=== PATIENT | male | born 1955 | race Caucasian/White ===

== ENCOUNTER 2021-09-13 14:00 | Outpatient (CLI) | payer MEDICARE, SELFPAY ==
--- NOTE | ~2021-09-13 | CT_ITS ---
EXAMINATION: CT soft tiss nk chst ab pel wo DATE: 09/13/2021 14:43 INDICATION: Lymphomatoid papulosis. TECHNIQUE: Computed tomography (CT) of the neck, chest, abdomen, and pelvis was performed without int ravenous contrast. Automated exposure control and iterative reconstruction technique were employed. T he dose-length product was 1501.88 mGy-cm. COMPARISON: None FINDINGS: NECK CT: There are no pathologically enlarged lymph nodes. There is mild mucosal thickening in the paranasal s inuses. There are changes of healed anterior fusion procedure from C5 to C7 with anterior plate and s crews. There is moderate cervical spondylosis. CHEST CT: There is mild atelectasis bilaterally. A calcified right lung nodule and calcified right hilar and me diastinal lymph nodes are consistent with old granulomatous disease. No pleural effusion. The heart s ize is normal. There are coronary artery calcifications. No pericardial effusion. There is mild thora cic spondylosis. ABDOMEN/PELVIS CT: There is diffuse hepatic steatosis. There is a gallstone in the gallbladder, which is normal in size. The spleen is normal in size. The pancreas, adrenal glands, and kidneys are normal. There is a small left inguinal hernia containing fat. There are no dilated loops of bowel. There are no pathologicall y enlarged lymph nodes. There is no free intraperitoneal fluid. There is diffuse bladder wall thicken ing. There is mild lumbar spondylosis. IMPRESSION: 1. Diffuse hepatic steatosis. 2. Diffuse bladder wall thickening, which may be secondary to chronic outlet obstruction or cystitis. Reviewed, dictated and finalized at location A. IMPRESSION: 1. Diffuse hepatic steatosis. 2. Diffuse bladder wall thickening, which may be secondary to chronic outlet ob struction or cystitis.
== END 2021-09-13 14:01 | disposition home or self-care (01) ==
PROVIDERS: PCP Internal Medicine; Visit Provider Internal Medicine Hematology & Oncology
DX: C86.6 Primary cutaneous CD30-positive T-cell proliferations (principal); K76.0 Fatty (change of) liver, not elsewhere classified; R93.89 Abnormal findings on diagnostic imaging of other specified body structures
CPT/HCPCS: 70490; 71250; 74176

== ENCOUNTER 2021-09-20 10:05 | Outpatient (CLI) | payer MEDICARE, SELFPAY ==
--- NOTE | ~2021-09-20 | XR_ITS ---
EXAMINATION: XR barium swallow modified EXAM DATE: 09/20/2021 11:05 INDICATION: R13.10 - Dysphagia, unspecified . TECHNIQUE: Modified barium esophagram was performed by speech pathologist with radiologist Dr. Lane Salter present to administered fluoroscopy. Speech pathologist administered barium in varying consis tencies as per speech pathologist documentation. This was recorded on tape. Additional frontal standing images of the esophagus were obtained. There was total fluoroscopic time of 1.2 minutes. The DAP for this procedure was 1.4 Gycm2. A total of 222 images sent to PACS from [facility] exam. FINDINGS: Oral stage: Adequate function. Pharyngeal phase: Adequate function. Laryngeal penetration: None. Aspiration: None. Laryngeal sensitivity: Present. Frontal esophageal projections demonstrates no evidence of esophageal mass lesion, stricture or diver ticulum. There is cervical fusion hardware. IMPRESSION: Patient tolerated oral feedings in the upright position. Please refer to speech patholo gist findings and specific feeding recommendations. Reviewed, dictated and finalized at location A. IMPRESSION: Patient tolerated oral feedings in the upright position. Please r efer to speech pathologist findings and specific feeding recommendations.
== END 2021-09-20 10:06 | disposition home or self-care (01) ==
LOC: ANHIMG 10:11
PROVIDERS: PCP Internal Medicine; Visit Provider Otolaryngology
DX: R13.10 Dysphagia, unspecified (principal)
CPT/HCPCS: 92611

== ENCOUNTER 2021-12-28 00:44 | Day surgery (SDC) | payer MEDICARE, SELFPAY ==
[2021-12-16 13:27] VITALS: BMI 24.9
--- NOTE | 2021-12-27 16:37 | PM.HPGS ---
History of Present Illness History of Present Illness Consent: Risks, benefits, and alternatives have been discussed and questions answered. Patient agrees to proceed with procedure. Chief complaint: neoplasm screening Narrative: Reno Thacker is a 66 year old male here for colon cancer screening Review of Systems Review of Systems: All systems reviewed & are unremarkable except as noted in HPI and below PMFSH Past Medical History Medical History Hyperglycemia Family History Family History Father Family history of diabetes mellitus in first degree relative Mother Patient's mother is Social History Social History Smoking status: Never smoker Second hand tobacco smoke exposure: No Alcohol intake: current Drinks per week: 20 Living arrangements: alone Spiritual care concerns: No Meds Home Medications and Allergies Home Medications Medication Instructions Recorded Confirmed Type vardenafil 20 mg tablet 20 mg PO DAILY PRN #30 tablet 10/18/20 12/16/21 Rx lisinopril 40 mg tablet 40 mg PO DAILY #90 tablet 08/01/21 12/28/21 Rx diazepam 10 mg tablet 10 mg PO .hs PRN #30 tablet 11/02/21 12/28/21 Rx sildenafil 100 mg tablet 100 mg PO DAILY PRN #30 tablet 11/29/21 12/16/21 Rx lansoprazole 30 mg PO EVERY OTHER DAY 12/16/21 12/28/21 History minocycline 50 mg PO EVERY OTHER DAY 12/16/21 12/28/21 History Allergies Allergy/AdvReac Type Severity Reaction Status Date / Time iodine Allergy Unknown unknown Verified 12/28/21 08:16 Penicillins Allergy Unknown unknown Verified 12/28/21 08:16 Exam Resp: Auscultation: clear to auscultation bilaterally Cardio: Rate: regular rate Rhythm: regular rhythm GI: GI Palp: Yes Soft to palpation and No Tenderness to palpation present (GI) Assessment and Plan Assessment and plan (1) Colon cancer screening: Code(s): Z12.11 - Encounter for screening for malignant neoplasm of colon Status: Acute Assessment and Plan: Colonoscopy with possible biopsy or polypectomy or cautery or injection of substances.
[2021-12-28 08:17] VITALS: BP 151/97; PULSE 106; RESP 19; TEMP 36.4; O2SAT 100
[2021-12-28] MEDS: LACTATED RINGERS 1,000 ML 150 ML IV CONT (08:27)
--- NOTE | 2021-12-28 09:36 | WPDANESEPPF ---
Anes - Initial Pre Proc Eval Procedure: Operation Date: 12/28/21 09:30 Proposed Procedures p Screening Colonoscopy - Mele Bynum MD Date/Time: 12/28/21 09:36 Surgeon: Mele Bynum MD Pre Op Diagnosis: neoplasm screening Patient Data Age: 66 Gender: M Height: 1.65 m Weight: 67.3 kg Last Vital Signs Temp 97.5 F L 12/28/21 08:17 Pulse 106 H 12/28/21 08:17 Resp 19 12/28/21 08:17 BP 151/97 H 12/28/21 08:17 Pulse Ox 100 12/28/21 08:17 Allergies Allergy/AdvReac Type Severity Reaction Status Date / Time iodine Allergy Unknown unknown Verified 12/28/21 08:16 Penicillins Allergy Unknown unknown Verified 12/28/21 08:16 Home Medications Medication Instructions Recorded Confirmed Type vardenafil 20 mg tablet 20 mg PO DAILY PRN #30 tablet 10/18/20 12/16/21 Rx lisinopril 40 mg tablet 40 mg PO DAILY #90 tablet 08/01/21 12/28/21 Rx diazepam 10 mg tablet 10 mg PO .hs PRN #30 tablet 11/02/21 12/28/21 Rx sildenafil 100 mg tablet 100 mg PO DAILY PRN #30 tablet 11/29/21 12/16/21 Rx lansoprazole 30 mg PO EVERY OTHER DAY 12/16/21 12/28/21 History minocycline 50 mg PO EVERY OTHER DAY 12/16/21 12/28/21 History Patient hx anesthesia problems: none Family hx anesthesia problems: none Results Review: All pre-operative results and documents have been reviewed as part of the pre-operative evaluation. [facility] Past Medical History Medical History Hyperglycemia Family History Family History Father Family history of diabetes mellitus in first degree relative Mother Patient's mother is Social History Social History Smoking status: Never smoker Second hand tobacco smoke exposure: No Alcohol intake: current Drinks per week: 20 Living arrangements: alone Spiritual care concerns: No Anes - Eval Final PreProcedure Day of Procedure 12/28/21 09:36 Patient weight: overweight Heart: regular rate and rhythm Lungs: clear to auscultation Airway: Mallampati scale class II Neurological: alert and oriented Last oral intake: >/= 8 hours ASA classification: II Emergent: no Anesthetic plan: proceed Anesthesia type and monitoring: general GIVS and standard monitoring Results Review: All pre-operative results and documents have been reviewed as part of the pre-operative evaluation. Informed Consent: The patient's anesthetic plan and its attendant risks and benefits were discussed with the patient/family/POA. Questions were solicited and answers provided to the satisfaction of the patient/family/POA.
[2021-12-28] MEDS: SIMETHICONE ORAL SUSPENSION 20 MG/0.3 ML 30 ML BOTTLE 0.6 ML IRRIGATION (09:39)
[2021-12-28 09:49] VITALS: BP 83/56; PULSE 85; RESP 19; O2SAT 98
[2021-12-28 09:59] VITALS: BP 97/61; PULSE 86; RESP 23; O2SAT 100
[2021-12-28 10:09] VITALS: BP 111/74; PULSE 81; RESP 20; O2SAT 100
== END 2021-12-28 10:25 | disposition home or self-care (01) ==
PROVIDERS: PCP Internal Medicine; Visit Provider Internal Medicine Gastroenterology
PROC: 0DJD8ZZ Inspection of Lower Intestinal Tract, Via Natural or Artificial Opening Endoscopic (ICD-10-PCS; CPT 45378; principal; 2021-12-28 09:30)
DX: Z12.11 Encounter for screening for malignant neoplasm of colon (principal)
CPT/HCPCS: G0121; J2704; J7120

== ENCOUNTER 2021-12-28 14:38 | Observation (INO) | payer MEDICARE, SELFPAY ==
--- NOTE | ~2021-12-28 | NM_ITS ---
EXAMINATION: NM stress w perf spect multi DATE: 12/29/2021 13:43 INDICATION: Chest pain TECHNIQUE: Rest images were obtained following intravenous administration of 9.2 mCi Tc99m tetrofosmi n ([employer] [place]). The patient performed an exercise activity. At peak exercise, 28.8 mCi Tc99m tetrofosmin (Myoview) was administered intravenously, and stress images were obtained. Data was reconstructed in to short axis and horizontal and vertical long axis SPECT images. Gated SPECT images were also obtain ed. COMPARISON: None. FINDINGS: There is normal left ventricular perfusion without definite evidence of reversible or fixed perfusion abnormality to suggest ischemia or infarction. There is normal left ventricular chamber size, wall motion and ejection fraction. Left ventricular ejection fraction measures >70%. IMPRESSION: 1. Normal myocardial perfusion at rest and during stress. 2. Left ventricular ejection fraction measuring >70%. Reviewed, dictated and finalized at location A. TROGRAPH OPERATOR
--- NOTE | ~2021-12-28 | XR_ITS ---
EXAMINATION: XR chest 2V DATE: 12/28/2021 15:08 INDICATION: Dyspnea. Upper arm and chest pain. TECHNIQUE: Frontal and lateral views of the chest were obtained. COMPARISON: Chest CT 09/13/2021 FINDINGS: The chest demonstrates clear lungs without pneumonia, pleural effusion, or pneumothorax. Th e heart size is normal. There are changes of anterior fusion procedure in cervical spine. IMPRESSION: 1. No acute cardiopulmonary disease. Reviewed, dictated and finalized at location E. UGH OPERATOR
--- NOTE | 2021-12-28 14:42 | ECG_ITS ---
Measurements Intervals [place] Rate: 115 P: 14 OK: 108 QRS: 10 QRSD: 85 T: 48 QT: 309 QTc: 428 Interpretive Statements SINUS TACHYCARDIA INCOMPLETE RIGHT BUNDLE BRANCH BLOCK DELAYED PRECORDIAL R/S TRANSITION ABNORMAL ECG Electronically Signed On 12-28-2021 15:02:47 BUSPERSON by Audie Wing D.O.
[2021-12-28 15:07] LABS: Basophils Absolute Auto 0.1 K/mm3 (0.0-0.1); Basophils Percent Auto 0.7 % (0.2-1.2); Eosinophils Percent Auto 0.4 % (0-4.4); Hematocrit 48.5 % (42.0-52.0); Immature Granulocyte Absolute 0.03 K/mm3 (0.00-0.031); Immature Granulocyte Percent A 0.4 % (0-0.5); Lymphocytes Absolute Auto 1.76 K/mm3 (0.9-3.2); Lymphocytes Percent Auto 25.3 % (18.3-44.2); Mean Corpuscular HGB Conc 35.1 g/dl (32-36); Mean Corpuscular Hemoglobin 32.1 pg (26-34); Mean Corpuscular Volume 91.7 fl (80-100); Mean Platelet Volume 9.7 fl (7.4-10.4); Neutrophils Absolute Auto 4.1 K/mm3 (1.3-6.7); Neutrophils Percent Auto 59.2 % (45.5-73.1); Platelet Count Result 227 k/mm3 (150-375); Red Blood Count 5.29 M/mm3 (4.6-6.20); Red Cell Distribution Width 11.9 % (11.5-14.5)
[2021-12-28 15:18] LABS: Partial Thromboplastin Time 23.5 SECONDS (22.3-36.8); Prothrombin Time 12.9 Seconds (11.1-14.7)
[2021-12-28 15:24] LABS: Alanine Aminotransferase 36 U/L (4-50); Albumin Level 4.4 g/dL (3.5-5.1); Alkaline Phosphatase 70 U/L (38-126); Anion Gap 9 mmol/L (8-16); Aspartate Amino Transferase 39 U/L (17-59); Bilirubin,Total 0.9 mg/dL (0.2-1.3); Blood Urea Nitrogen 16 mg/dL (9-20); Calcium 9.6 mg/dL (8.4-10.2); Carbon Dioxide 22 mmol/L (22-30); Chloride 101 mmol/L (98-107); Estimated CRCL calculation 37 ml/min; Estimated Glomerular Filt Rate 44; Glucose 298 mg/dL (65-110); Lipase 84 U/L (23-300); Potassium 4.1 mmol/L (3.4-5.0); Sodium 132 mmol/L (137-145)
[2021-12-28 15:35] LABS: Troponin I < 0.012 ng/mL (0.000-0.034)
[2021-12-28] MEDS: ASPIRIN 81 MG CHEWABLE TABLET 324 MG PO (18:07)
[2021-12-28 18:25] VITALS: PULSE 92
[2021-12-28 18:44] LABS: Troponin I < 0.012 ng/mL (0.000-0.034)
--- NOTE | 2021-12-28 19:31 | ED.GENADULT ---
HPI - General Adult General Chief complaint: Shortness of Breath/Dyspnea Stated complaint: nausea, dyspnea. arms are heavy Time Seen by Provider: 12/28/21 17:42 Source: patient Mode of arrival: ambulatory Limitations: no limitations History of Present Illness HPI narrative: 66-year-old with a history of her diabetes, hypertension, hyperlipidemia was sent by his primary doctor with a bilateral arm heaviness for past 1 week. Patient states that he has been painting started feeling heaviness in his both the shoulders associated with diaphoresis which lasted for few minutes had 3 such episodes since then. He presently denies any shortness of breath or chest pain. He has no previous history of coronary artery disease and never had a stress test in the past. Severity: moderate Pain Consistency: intermittent Relieving factors: rest Exacerbating factors: other (With exertion) Associated symptoms: diaphoresis and shortness of breath Related Data Home Medications Medication Instructions Recorded Confirmed lansoprazole 30 mg PO EVERY OTHER DAY 12/16/21 12/28/21 minocycline 50 mg PO EVERY OTHER DAY 12/16/21 12/28/21 Allergies Allergy/AdvReac Type Severity Reaction Status Date / Time iodine Allergy Unknown unknown Verified 12/28/21 18:00 Penicillins Allergy Unknown unknown Verified 12/28/21 18:00 Review of Systems Review of Systems: All systems reviewed & are unremarkable except as noted in HPI and below Constitutional: Constitutional: Reports no additional constitutional complaints Eyes: Eyes: Reports no additional eye complaints ENT: Reports system reviewed and no additional complaints, except as documented Cardiovascular: Cardiovascular: Reports no additional cardiovascular complaints Respiratory: Respiratory: Reports as per HPI Gastrointestinal: Gastrointestinal: Reports no additional gastrointestinal complaints Musculoskeletal: Musculoskeletal: Reports no additional musculoskeletal complaints Integumentary/Breasts: Skin/Breast: Reports system reviewed and no additional complaints, except as docu Neurologic: Reports system reviewed and no additional complaints, except as documented Psychiatric: Psychiatric: Reports no additional psychiatric complaints [facility] Past Medical History Medical History Hyperglycemia Family History Family History Father Family history of diabetes mellitus in first degree relative Mother Patient's mother is Social History Social History Smoking status: Never smoker Second hand tobacco smoke exposure: No Alcohol intake: current Drinks per week: 20 Spiritual care concerns: No Exam Narrative: GENERAL: Well-appearing, well-nourished, and in no acute distress. HEAD: Normocephalic, atraumatic. EYES: PERRLA and EOMI. NECK: Supple. CHEST: Clear to auscultation. No respiratory distress. HEART: Regular rate and rhythm. No murmur heard. Normal peripheral pulses. ABDOMEN: Soft, nontender, nondistended, normal active bowel sounds. EXTREMITIES: Normal range of motion. No edema. SKIN: Warm, dry, no rash. NEURO: No focal deficits. Alert and oriented x3. PSYCH: Normal mood and affect. Course Course Emergency Course: Patient presently not having any pain, informed him about his EKG, lab work and chest x-ray findings. I discussed with Dr. Simpson will consult the patient. I discussed with Stretched agreed to admit the patient. Vital Signs Vital signs: Vital Signs Pulse Rate 92 12/28/21 18:25 Pulse Rate 92 12/28/21 18:25 Medical Decision Making Differential Diagnosis Differential Diagnosis: Musculoskeletal pain, angina Medical Records Medical records reviewed: Yes I reviewed the external patient's medical records. Vital Signs Vital Signs: Vital Signs Pulse Rate 92 12/28
[2021-12-28 19:37] VITALS: BP 128/85; PULSE 90; RESP 22; O2SAT 100
--- NOTE | 2021-12-28 20:35 | PC.NURSE ---
Care assumed of pt at this time. States i feel okay now . Pt is aware he is waiting for bed placement upstairs. Pt has been given a meal and is resting at this time.
[2021-12-28 21:16] VITALS: PULSE 87; RESP 18; O2SAT 98
[2021-12-28 21:39] LABS: Troponin I < 0.012 ng/mL (0.000-0.034)
[2021-12-28 21:47] VITALS: BP 112/76
[2021-12-28 22:25] LABS: SARS-CoV-2 RNA PCR Negative
[2021-12-28 23:42] VITALS: BP 122/78; PULSE 78; RESP 18; O2SAT 99
[2021-12-29] VITALS (8 sets, daily range): BP systolic 118–133; BP diastolic 77–88; PULSE 67–90; RESP 14–22; TEMP 35.8–36.8; O2SAT 98–100; BMI 26.4
--- NOTE | 2021-12-29 | EST_ITS ---
Patient Info Name: Reno Thacker Age: 66 years : 1955 Gender: Male Ht: 65 in Wt: 153 lbs BSA: 1.80 m2 HR: 81 bpm BP: 112 / 87 mmHg Heart Rhythm: Sinus Rhythm Exam Date: 12/29/2021 11:39 AM Exam Location: [facility] Stress Patient Status: Outpatient Admit Date: 12/28/2021 Staff Ordering Physician: Tiago Gomez Attending Provider: Gentry Hernández MD Exercise Technologist: Maryann Parks CT Nurse: TIAGO GOMEZ Exam Type: CA stress test treadmill w NM Study Info Indications R07.9 - Chest pain, unspecified A nuclear stress test was performed. Summary 1. Normal ST segment response to stress. 2. Please correlate with nuclear medicine images, reported separately. Protocol: [facility] Stress ECG Details Stage: REST Duration (min): 1 min : 28 sec Speed (mph): 0.0 Grade (%): 0 HR (bpm): 75 SBP (mmHg): 112 DBP (mmHg): 87 METS: --- Stage: REST Duration (min): 5 min : 27 sec Speed (mph): 0.0 Grade (%): 0 HR (bpm): 84 SBP (mmHg): 112 DBP (mmHg): 87 METS: --- Stage: STAGE 1 Duration (min): 1 min : 0 sec Speed (mph): 1.7 Grade (%): 10 HR (bpm): 117 SBP (mmHg): 112 DBP (mmHg): 87 METS: --- Stage: STAGE 1 Duration (min): 2 min : 0 sec Speed (mph): 1.7 Grade (%): 10 HR (bpm): 131 SBP (mmHg): 112 DBP (mmHg): 87 METS: --- Stage: STAGE 1 Duration (min): 3 min : 0 sec Speed (mph): 1.7 Grade (%): 10 HR (bpm): 133 SBP (mmHg): 172 DBP (mmHg): 96 METS: --- Stage: STAGE 2 Duration (min): 1 min : 0 sec Speed (mph): 2.5 Grade (%): 12 HR (bpm): 142 SBP (mmHg): 172 DBP (mmHg): 96 METS: --- Stage: STAGE 2 Duration (min): 2 min : 0 sec Speed (mph): 2.5 Grade (%): 12 HR (bpm): 150 SBP (mmHg): 190 DBP (mmHg): 95 METS: --- Stage: STAGE 2 Duration (min): 3 min : 0 sec Speed (mph): 2.5 Grade (%): 12 HR (bpm): 153 SBP (mmHg): 190 DBP (mmHg): 95 METS: --- Stage: RECOVERY Duration (min): 0 min : 59 sec Speed (mph): 0.0 Grade (%): 0 HR (bpm): 151 SBP (mmHg): 190 DBP (mmHg): 96 METS: --- Stage: RECOVERY Duration (min): 1 min : 59 sec Speed (mph): 0.0 Grade (%): 0 HR (bpm): 125 SBP (mmHg): 190 DBP (mmHg): 96 METS: --- Stage: RECOVERY Duration (min): 2 min : 59 sec Speed (mph): 0.0 Grade (%): 0 HR (bpm): 109 SBP (mmHg): 158 DBP (mmHg): 93 METS: --- Stage: RECOVERY Duration (min): 3 min : 31 sec Speed (mph): 0.0 Grade (%): 0 HR (bpm): 124 SBP (mmHg): 158 DBP (mmHg): 93 METS: --- Rest HR: 84 bpm Peak HR: 153 bpm Rest Sys BP: 112 mmHg Peak Sys BP: 190 mmHg Max Pred HR: 156 bpm % Max Pred HR: 98 % Target HR: 133 bpm Max RPP: 29,070 bpm*mmHg Garcia Score: -6 Target HR Summary: Patient's target
--- NOTE | 2021-12-29 | ECHO_ITS ---
Patient Info Name: Reno Thacker Age: 66 years : 1955 Gender: Male Ht: 65 in Wt: 153 lbs BSA: 1.80 m2 HR: 70 bpm BP: 131 / 81 mmHg Heart Rhythm: Sinus Rhythm Exam Date: 12/29/2021 2:49 PM Exam Location: [facility] Patient Status: Inpatient Admit Date: 12/28/2021 Staff Ordering Physician: Schuyler Simpson MD Vehicle Modification Technician: Daniel Austin, SHYAM, RT Attending Provider: Gentry Hernández MD Referring Physician: Calvin MATHIAS; Exam Type: CA echo doppler color flow Study Info Indications I20.0 - Unstable angina Complete two-dimensional, color flow and Doppler transthoracic echocardiogram is performed. Strain analysis performed. Summary 1. Complete two-dimensional, color flow and Doppler transthoracic echocardiogram is performed. 2. Left ventricular chamber dimension is normal. 3. Left ventricular systolic function is normal, estimated at 60-65%. 4. There is no increased left ventricular wall thickness. 5. The left ventricular diastolic function is grade I diastolic dysfunction. 6. Global longitudinal strain is abnormal at -14 %. 7. Right ventricular chamber dimension is mildly enlarged. 8. The mitral valve annulus is mildly calcified. 9. There is mild pulmonic regurgitation. 10. Strain analysis performed. Left Ventricle Left ventricular chamber dimension is normal. Left ventricular systolic function is normal, estimated at 60-65%. There is no increased left ventricular wall thickness. The left ventricular diastolic function is grade I diastolic dysfunction. Global longitudinal strain is abnormal at -14 %. Right Ventricle Right ventricular chamber dimension is mildly enlarged. Right ventricular systolic function is normal. Left Atria Left atrial chamber dimension is normal. Right Atria Right atrial chamber dimension is normal. Atrial Septum Intact interatrial septum visualized by color flow imaging. Aortic Valve The aortic valve is trileaflet. There is mild aortic valve sclerosis. There is no aortic valve stenosis. There is trace aortic valve regurgitation. Pulmonic Valve The pulmonic valve is normal. There is no pulmonic valve stenosis. There is mild pulmonic regurgitation. Mitral Valve The mitral valve has calcified annulus. There is no mitral valve stenosis. There is trace mitral valve regurgitation. The mitral valve annulus is mildly calcified. Tricuspid Valve The tricuspid valve leaflets are normal. There is no significant tricuspid valve stenosis. There is trace tricuspid valve regurgitation. Pericardium/Pleural The pericardium appears normal. There is no pericardial effusion. Inferior Vena Cava Normal inferior vena cava with >50% collapse upon inspiration consistent with normal right atrial pressure, 5 mmHg. Aorta The aortic root size at the sinus of Valsalva is normal. Left Ventricular Outflow Tract Name Value Normal LVOT 2D LVOT Diameter 1.9 cm LVOT Doppler LVOT Peak Gradient 4 mmHg LVOT Mean Gradient 1 mmHg LVOT VTI 14 cm
--- NOTE | 2021-12-29 00:09 | ADMGEN ---
This patient, Reno Thacker, was admitted to [facility] as an IMU overflow at 0009. Patient/family oriented to hospital policies and general routines including ID bracelet, bed and alarms, visiting hours, pain management, procedures, bathroom and other care routines, personal items, smoking policy, room service/diet, and visiting hours. Information on how to activate the Rapid Response Team has been discussed. Patient/Family are encouraged to report perceived risks to care and to ask questions if they do not understand what they are told or what they should do.
--- NOTE | 2021-12-29 06:17 | PM.IMHP ---
H&P: HPI History of Present Illness Date/Time: 12/29/21 06:17 Chief Complaint: Bilateral upper arm weakness Narrative: 66-year-old with who presents with symptoms of bilateral arm heaviness along with epigastric discomfort about a week ago while he was working at his house painting. He did not have any chest pain or chest heaviness. The symptom was associated with some nausea shortness of breath and diaphoresis. The symptoms resolved within few minutes. The similar symptoms again started twice and both will the episode were exertional. He called his regular doctor Dr. Valderrama who suggested he go to the ER for evaluation. He reports that he gets short of breath and nauseous during this episode with excessive sweating. He was evaluated in the ER was noted to have creatinine of 1.6 initial troponin was negative glucose of 298. EKG revealed sinus tachycardia with no acute ST-T changes. Is getting admitted for further evaluation and management. Review of Systems Review of Systems: - CONSTITUTIONAL: Denies weight loss, fever and chills. - HEENT: Denies changes in vision and hearing - RESPIRATORY: Reports SOB and denies cough. - CV: Denies palpitations and CP. - GI: Reports epigastric pain and nausea, denies vomiting and diarrhea. - : Denies dysuria and urinary frequency. - MSK: Denies myalgia and joint pain. - SKIN: Denies rash and pruritus. - NEUROLOGICAL: Denies headache and syncope. - PSYCHIATRIC: Denies recent changes in mood. Denies anxiety and depression. All systems reviewed & are unremarkable except as noted in HPI and below Constitutional: Constitutional: Reports fatigue and Reports weakness Neurologic: Reports weakness Endocrine: Endocrine: Reports fatigue [facility] Past Medical History Medical History Hyperglycemia Family History Family History Father Family history of diabetes mellitus in first degree relative Mother Patient's mother is Social History Social History Smoking status: Never smoker Second hand tobacco smoke exposure: No Alcohol intake: current Drinks per week: 20 Substance use: never Spiritual care concerns: No Meds Home Medications and Allergies Home Medications Medication Instructions Recorded Confirmed Type vardenafil 20 mg tablet 20 mg PO DAILY PRN #30 tablet 10/18/20 12/29/21 Rx lisinopril 40 mg tablet 40 mg PO DAILY #90 tablet 08/01/21 12/29/21 Rx diazepam 10 mg tablet 10 mg PO .hs PRN #30 tablet 11/02/21 12/29/21 Rx sildenafil 100 mg tablet 100 mg PO DAILY PRN #30 tablet 11/29/21 12/29/21 Rx lansoprazole 30 mg PO EVERY OTHER DAY 12/16/21 12/29/21 History minocycline 50 mg PO EVERY OTHER DAY 12/16/21 12/29/21 History Allergies Allergy/AdvReac Type Severity Reaction Status Date / Time iodine Allergy Unknown unknown Verified 12/28/21 18:00 Penicillins Allergy Unknown unknown Verified 12/28/21 18:00 Vital Signs Vital Signs - 24 hr 12/28/21 18:25 12/28/21 19:37 12/28/21 21:16 Temperature Pulse Rate 92 90 87 Respiratory Rate 22 H 18 Blood Pressure 128/85 Pulse Oximetry 100 98 12/28/21 21:47 12/28/21 23:42 12/29/21 00:20 Temperature 96.4 F L Pulse Rate 78 68 Respiratory Rate 18 19 Blood Pressure 112/76 122/78 133/77 Pulse Oximetry 99 100 12/29/21 02:00 12/29/21 04:00 12/29/21 06:00 Temperature 97.0 F L Pulse Rate 67 72 69 Respiratory Rate 14 Blood Pressure 118/86 Pulse Oximetry 98 Exam Narrative: GENERAL: Well-appearing, well-nourished, and in no acute distress. HEAD: Normocephalic, atraumatic. EYES: PERRLA and EOMI. NECK: Supple. Nontender CHEST: Clear to auscultation. No respiratory distress. HEART: Regular rate and rhythm. No murmur heard. Normal peripheral pulses. ABDOMEN: Soft, nontender, nondistended, normal act
[2021-12-29 07:11] LABS: Anion Gap 5 mmol/L (8-16); Blood Urea Nitrogen 21 mg/dL (9-20); Calcium 9.8 mg/dL (8.4-10.2); Carbon Dioxide 28 mmol/L (22-30); Chloride 104 mmol/L (98-107); Estimated CRCL calculation 37 ml/min; Estimated Glomerular Filt Rate 44; Glucose 218 mg/dL (65-110); Potassium 4.8 mmol/L (3.4-5.0); Sodium 137 mmol/L (137-145)
[2021-12-29 07:12] LABS: Cholesterol 266 mg/dL (0-200); HDL Direct 38 mg/dL; Triglycerides 285 mg/dL (<150)
[2021-12-29 07:23] LABS: LDL Cholesterol Direct 173 mg/dL
[2021-12-29 07:30] LABS: Hemoglobin A1C 7.7 % (<5.7)
[2021-12-29] MEDS: lisinopriL 20 MG TABLET 40 MG PO (08:43)
[2021-12-29] MEDS: ASPIRIN 81 MG ENTERIC TABLET PO (08:43)
[2021-12-29] MEDS: MINOCYCLINE HCL 50 MG CAPSULE PO (08:43)
[2021-12-29] MEDS: PANTOPRAZOLE 40 MG TABLET PO (08:43)
--- NOTE | 2021-12-29 09:45 | PM.DS ---
DS: Admitting Diagnosis Discharge Date 12/29/21 0945 Admitting Diagnosis Chest pain, hyperglycemia, and YASSINE DS: Discharge Diagnosis Discharge Diagnosis (1) Anginal equivalent: Code(s): I20.8 - Other forms of angina pectoris Status: Acute Assessment and Plan: Lexiscan was negative with EF of >70% Echo is being done now (2) Pure hypercholesterolemia: Code(s): E78.00 - Pure hypercholesterolemia, unspecified Status: Acute Assessment and Plan: Start on crestor (3) Gastro-esophageal reflux disease without esophagitis: Code(s): K21.9 - Gastro-esophageal reflux disease without esophagitis Status: Acute Assessment and Plan: Protonix 40mg PO (4) Type 2 diabetes mellitus: Code(s): E11.9 - Type 2 diabetes mellitus without complications Status: Acute Assessment and Plan: A1c 7.7 Glucose is running in the 200s will start on glipizide 2.5mg PO daily for 2 days Metformin for 3 days and then BID there after He will need follow up with primary (5) Hyponatremia: Code(s): E87.1 - Hypo-osmolality and hyponatremia Status: Acute Assessment and Plan: Na 132 upon admission seems to be stable at this time and is currently 137 (6) Acute renal failure: Code(s): N17.9 - Acute kidney failure, unspecified Status: Acute Assessment and Plan: Creatinine mildly elevated at 1.60 Baseline looks to be about 1.20 fluids for hydration since he has been NPO DS: Summary Hospital Course Hospital Course: Patient is a 66-year-old male with a past medical history hyperglycemia, hyperlipidemia, hypertension who presented to the ED with complaints of arm heaviness with epigastric does comfort. Patient stated these experience the symptoms about every other day for the last week. Patient was also having some shortness of breath nausea with sweating. Symptoms usually resolved on their own and occurred with exertion. He did talk to his PCP who suggest the patient go to the ED. EKG showed sinus tachycardia with no acute ST changes. Troponin was negative glucose was elevated 298. Tash scan was done and showed an EF >70%. Patient is stable for discharge. Will have patient follow up with primary about new onset diabetes. Patient denies any chest pain, shortness of breath, nausea, vomiting, diarrhea. Echo was done and showed Status at Discharge Functional status at discharge: independent ambulation Overall status at discharge: patient is progressing back to baseline Time Spent with Patient Time attestation: Total time spent providing and/or coordinating discharge services: 52 minutes Time spent: Greater than 30 minutes Specific discharge activities: Diagnostic testing, chart review, developing a treatment plan, education, care coordination documentation, physical exam, result review Exam Const: General: cooperative, healthy appearing, no acute distress, well developed, alert and awake Nutritional Appearance: well nourished Orientation/consciousness: patient oriented x3 Limitations: no limitations HENMT: Head: normal to inspection Ears: hearing grossly normal bilaterally General nose exam: Normal external nose present Mouth: Yes Normal oral and palatal mucosa present, Yes lip normal and Yes tongue normal Teeth and gingiva: abnormal tooth and associated gingiva and poor dentition Eyes: General: appearance normal, both eyes and all related structures Neck: Neck: normal visual inspection, full ROM, trachea midline and supple Chest: Chest palpation & inspection: normal inspection of the chest Resp: Effort & Inspection: normal respiratory effort and able to speak in complete sentences Auscultation: clear to auscultation bilaterally Cardio: Jugular venous distension: no JVD Rate: regular rate Rhythm: regular rhythm Heart sounds: S1 normal heart sound present and S2 normal heart sound present Peripheral pulses: Peripheral pulses 2+ throug
--- NOTE | 2021-12-29 10:21 | PM.CNCAR ---
Assessment and Plan Assessment and plan (1) Hyperlipidemia associated with type 2 diabetes mellitus: Code(s): E11.69 - Type 2 diabetes mellitus with other specified complication; E78.5 - Hyperlipidemia, unspecified Status: Acute Assessment and Plan: Markedly above goal. Will start him on rosuvastatin 20 mg daily (2) Hypertension associated with diabetes: Code(s): E11.59 - Type 2 diabetes mellitus with other circulatory complications; I15.2 - Hypertension secondary to endocrine disorders Status: Acute Assessment and Plan: At goal. Diabetes is above goal. Will defer his diabetic management to hospitalist and his PCP. Continue lisinopril. (3) Shortness of breath: Code(s): R06.02 - Shortness of breath Status: Acute Assessment and Plan: Patient is having episodes of diaphoresis, shortness of breath and heaviness sensation. This sounds more arrhythmogenic or hypotension related rather than coronary. It does not sound like unstable angina although could be an atypical presentation for angina albeit less likely. Will check a 2D echocardiogram with Doppler. Exercise myocardial perfusion study will also be ordered and reviewed. He has several risk factors coronary disease however in ischemic workup is reasonable. If this stress test and echocardiogram are unremarkable, would have him wear an outpatient monitor (4) Acute renal failure: Code(s): N17.9 - Acute kidney failure, unspecified Status: Acute Assessment and Plan: Appears prerenal. Will start him on some IV fluid normal saline 100 cc/hour (5) Diaphoresis: Code(s): R61 - Generalized hyperhidrosis Status: Acute Assessment and Plan: Will check a TSH and free T4 level. History of Present Illness History of Present Illness Consult date/time: 12/29/21 10:21 Requesting physician: Katty Chne MD Consult reason: Other (Unstable angina) Reason For Visit: unstable angina Narrative: Date of service 12/29/2021 Reason consultation: Unstable angina Requesting provider: Dr. Gaston History patient 66-year-old male who last week started doing some work around his house. He was painting. He is climbing up and down ladders and suddenly felt short of breath, diaphoretic and felt a sensation of severe and significant heaviness, cross his head and into his shoulders and throughout his whole body. Episode lasted about 1 minute and then gradually subsided. He continued to work. Earlier this week and another episode that was very similar. He had extreme heaviness on his shoulders, diaphoresis and shortness of breath as well as some queasiness in his stomach. Episode lasted about another minute. Yesterday he had another episode while picking up some dog food. He felt a heavy feeling and cold clammy sweatiness as well as shortness of breath. Symptoms lasted for about 2-3 minutes and then gradually subsided. He called his primary care provider told him to go to the ER. These EKG is unremarkable and he has rule out for myocardial infarction. He absolutely denies any in all chest pain or chest tightness. He has a little bit of queasiness or some nausea and his stomach. No recent syncope, presyncope, paroxysmal nocturnal dyspnea, orthopnea, edema. He does have some occasional palpitations which are not new. Review of Systems Review of Systems: All systems reviewed & are unremarkable except as noted in HPI and below Constitutional: Constitutional: Reports weakness Eyes: Eyes: Denies blurry vision ENT: Denies Normal hearing present Cardiovascular: Cardiovascular: Denies chest pain Respiratory: Respiratory: Reports dyspnea Gastrointestinal: Gastrointestinal: Denies abdominal pain Genitourinary: Genitourinary: Denies dysuria and Denies urinary frequency Musculoskeletal: Musculoskeletal: Denies back pain and Denies neck pain Integumentary/Breasts: Skin/Breast: Denies dry skin Neurol
--- NOTE | 2021-12-29 10:48 | PC.NURSE ---
Pt to [facility] for cardiac stress test per wheelchair
[2021-12-29] MEDS: ROSUVASTATIN 10 MG TABLET 20 MG PO (13:11)
[2021-12-29] MEDS: SODIUM CHLORIDE 0.9% IV 1,000 ML 100 ML IV CONT (13:17)
--- NOTE | 2021-12-29 13:17 | PC.NURSE ---
Pt returned from stress test via wheelchair
[2021-12-29 13:21] LABS: Glucose Point of Care 210 mg/dl (65-105)
[2021-12-29] MEDS: INSULIN ASPART (*BKC) 100 UNITS/ML SUB-Q (15:22)
[2021-12-29 17:05] LABS: Glucose Point of Care 208 mg/dl (65-105)
[2021-12-29 20:22] LABS: T4 Thyroxine 6.75 ug/dL (5.53-11.0)
--- NOTE | 2021-12-30 08:51 | PC.NURSE ---
Faxed intial referral for [facility]
== END 2021-12-29 17:55 | disposition home or self-care (01) ==
LOC: ANHED 19:38 → ANHCPC 12-29 08:27 → ANHIMU 12-30 14:53
PROVIDERS: Emergency Medicine; Internal Medicine Cardiovascular Disease; Admitting Provider Internal Medicine; Emergency Provider Family Medicine; PCP Internal Medicine; Visit Provider Hospitalist
DX: I20.0 Unstable angina (principal); N17.9 Acute kidney failure, unspecified; E11.59 Type 2 diabetes mellitus with other circulatory complications; E11.69 Type 2 diabetes mellitus with other specified complication; I15.2 Hypertension secondary to endocrine disorders; R06.02 Shortness of breath; E87.1 Hypo-osmolality and hyponatremia; I10 Essential (primary) hypertension; E78.5 Hyperlipidemia, unspecified; I37.1 Nonrheumatic pulmonary valve insufficiency; E78.00 Pure hypercholesterolemia, unspecified; K21.9 Gastro-esophageal reflux disease without esophagitis; K76.0 Fatty (change of) liver, not elsewhere classified; R61 Generalized hyperhidrosis; Z20.822 Contact with and (suspected) exposure to COVID-19
CPT/HCPCS: 36415; 71046; 78452; 80048; 80053; 80061; 82948; 83036; 83690; 84436; 84443; 84484; 85025; 85610; 85730; 93005; 93017; 93306; 99285; A9270; A9502; C9803; G0378; J1815; J2704; J7030; J7120; U0003; U0005

== ENCOUNTER 2022-07-31 08:22 | Emergency (ER) | payer MEDICARE, SELFPAY ==
--- NOTE | ~2022-07-31 | XR_ITS ---
EXAMINATION: XR hand RT min 3V DATE: 07/31/2022 09:22 INDICATION: Dog bite TECHNIQUE: Posteroanterior, oblique and lateral views of the right hand were obtained. COMPARISON: None. FINDINGS: Alignment is normal. No fracture. Polyarticular osteoarthritis, moderate severity at the first interp halangeal joint, mild to moderate at the fifth metacarpophalangeal joint and mild at the first-third metacarpophalangeal and remaining interphalangeal joints. Mild soft tissue swelling dorsal to the sec ond and third metacarpophalangeal joints. No radiopaque foreign bodies. IMPRESSION: 1. Mild to moderate polyarticular osteoarthritis at the metacarpophalangeal and interphalangeal joint s. No acute osseous abnormality. Reviewed, dictated and finalized at location A. IMPRESSION: 1. Mild to moderate polyarticular osteoarthritis at the metacarpophalangeal and interphalangeal joints. No acute osseous abnormality.
[2022-07-31 08:32] VITALS: BP 154/89; PULSE 85; RESP 16; TEMP 36.3; O2SAT 99
--- NOTE | 2022-07-31 09:13 | ED.ANIMALBIT ---
HPI - Animal Bite General Chief Complaint: Animal Bite Stated Complaint: dog bite Time Seen by Provider: 07/31/22 08:56 History of Present Illness HPI narrative: 67-year-old male presents the emergency room for evaluation of a dog bite to his right hand. Patient states earlier this morning he broke up an animal fight between his dog and a coyote. EM states it was his dog that bit his hand. Dog is since . Dog was up-to-date on its rabies vaccinations. Presents with puncture wounds to the dorsal surface of his right hand. Denies any loss of function or limited range of motion. No other injuries Related Data Home Medications Medication Instructions Recorded Confirmed minocycline 50 mg capsule 50 mg PO EVERY OTHER DAY 12/16/21 04/04/22 Allergies Allergy/AdvReac Type Severity Reaction Status Date / Time iodine Allergy Unknown unknown Verified 04/04/22 08:56 Penicillins Allergy Unknown unknown Verified 04/04/22 08:56 Review of Systems Review of Systems: CONSTITUTIONAL: Denies fever, chills, or sweats. EYES: Denies visual changes, redness, or discharge. ENT: Denies rhinorrhea, congestion, sore throat, or otalgia. CARDIOVASCULAR: Denies chest pain, palpitations, or edema. RESPIRATORY: Denies cough or dyspnea. GASTROINTESTINAL: Denies abdominal pain, nausea, vomiting, or diarrhea. GENITOURINARY: Denies dysuria or hematuria. SKIN: Reports animal bite to right hand MUSCULOSKELETAL: Denies back pain, joint pain, or myalgia. NEUROLOGIC: Denies headache, numbness, dizziness, or weakness. PSYCHIATRIC: Denies anxiety or depression. PMFSH Past Medical History Medical History Hyperglycemia Hyperlipidemia associated with type 2 diabetes mellitus Hypertension associated with diabetes Family History Family History Father Family history of diabetes mellitus in first degree relative Mother Patient's mother is Sibling Heart disease Social History Social History Second hand tobacco smoke exposure: No Alcohol intake: current Drinks per week: 20 Substance use: never Spiritual care concerns: No Exam Narrative: GENERAL: Well-appearing, well-nourished, no physical limitations, and in no acute distress. HEAD: Normocephalic, atraumatic. EYES: Conjunctivae normal, PERRLA and EOMI. CHEST: Clear to auscultation. No respiratory distress. No wheezes rales or rhonchi. No tenderness. HEART: Regular rate and rhythm. No murmur heard. Normal peripheral pulses. EXTREMITIES: Normal range of motion. No edema. No clubbing or cyanosis SKIN: rt hand: Puncture wound to the dorsal surface over the distal third metacarpal with surrounding soft tissue swelling NEURO: No focal deficits. Alert and oriented x3. MAEW. CN's II-XI intact bilaterally PSYCH: Cooperative. Normal mood and affect. Course Vital Signs Vital signs: Vital Signs Temperature 36.3 C L 07/31/22 08:32 Pulse Rate 85 07/31/22 08:32 Respiratory Rate 16 07/31/22 08:32 Blood Pressure 154/89 H 07/31/22 08:32 Pulse Oximetry 99 07/31/22 08:32 Oxygen Delivery Room Air 07/31/22 08:32 Temperature 36.3 C L 07/31/22 08:32 Pulse Rate 85 07/31/22 08:32 Respiratory Rate 16 07/31/22 08:32 Blood Pressure 154/89 H 07/31/22 08:32 Pulse Oximetry 99 07/31/22 08:32 Oxygen Delivery Room Air 07/31/22 08:32 Discharge Plan Discharge Clinical Impression: Animal bite of dorsum of hand, Bite by animal, Dog bite Patient Disposition: Home, Self-Care Condition: Stable Instructions: Antibiotic Form, Animal Bite (ED) Prescriptions: New clindamycin HCl 300 mg capsule 300 mg PO Q8H 10 Days Qty: 30 0RF No Action metformin 500 mg tablet 500 mg PO BID Qty: 180 1RF aspirin 81 mg tablet,delayed release (DR/EC) 81 mg PO QAM Qty: 90 3
[2022-07-31] MEDS: TETANUS,DIPHTHERIA,AC PERTUSSIS ADULT (0.5 ML) BOOSTRIX IM (09:24)
== END 2022-07-31 10:21 | disposition home or self-care (01) ==
PROVIDERS: Emergency Provider Nurse Practitioner Family; PCP Internal Medicine
DX: S61.451A Open bite of right hand, initial encounter (principal); W54.0XXA Bitten by dog, initial encounter; E11.9 Type 2 diabetes mellitus without complications; Z23 Encounter for immunization
CPT/HCPCS: 73130; 90471; 90715; 99283